=== PATIENT | female | born 1960 | race African-American/Black ===

== ENCOUNTER 2019-10-29 18:52 | Emergency (ER) | payer BC, OTHER ==
[~2019-10-29] VITALS: Ht 175.3 cm; Wt 116.6 kg
[2019-10-29 19:49] LABS: ANION GAP 11 mmol/L (7-16); BUN 16 mg/dL (7-18); CALCIUM 9.7 mg/dL (8.5-10.1); CHLORIDE 100 mmol/L (98-107); CO2 27 mmol/L (21-32); CREATININE 1.1 mg/dL (0.6-1.0); GLUCOSE 107 mg/dL (74-106); POTASSIUM 3.5 mmol/L (3.5-5.1); SODIUM 138 mmol/L (136-145)
[2019-10-29 20:00] LABS: ALBUMIN 4.1 g/dL (3.4-5.0); SGOT 21 U/L (15-37); SGPT 37 U/L (30-65); TOTAL BILIRUBIN 0.2 mg/dL (0.2-1.0); TOTAL PROTEIN 7.8 g/dL (6.4-8.2); TROPONIN-I <0.06 ng/mL (<0.06)
[2019-10-29] MEDS ORDERED: PREDNISONE 20 M20 M1 PO (22:07)
[2019-10-29 22:14] VITALS: BP 129/76
--- NOTE | 2019-10-30 07:52 | EKG ---
[facility] [place] [address] ELECTROCARDIOGRAM REPORT Name: MO LUCIO Joanna Room #: DEP [facility]#: [id number] Admission: 10/29/19 Attend Phys: Discharge: 10/29/19 Date of : 56 Report #: [id number] THIS REPORT FOR: cc: KENNY - Renetta family physician/PCP KENNY - Renetta family physician/PCP Bertrand Edward MD [facility] THIS REPORT FOR: //name// [facility] ED Test Date: 2019-10-29 Test Time: 19:18:41 Pat Name: MO LUCIO Department: Room: Gender: Power Lineman Technician: [place] [id number] : 1960 Requested By: Nj Montgomery Order Number: [id number] MD: Bertrand Edward Measurements Intervals [place] Rate: 99 P: 42 AR: 185 QRS: 21 QRSD: 84 T: 48 QT: 358 QTc: 460 Interpretive Statements Sinus rhythm Abnormal R-wave progression, early transition No previous ECG available for comparison Electronically Signed On 10-30-2019 7:52:29 CDT by Bertrand Edward [email or web address] <ELECTRONICALLY SIGNED> By: Bertrand Edward MD, [facility] 10/30/19 075 17 17 Bertrand Edward MD, [facility] /EPI
== END 2019-10-29 22:14 | disposition home or self-care (01) ==
LOC: ER 18:52
PROVIDERS: Emergency Medicine
DX: U07.1 COVID-19 (principal); R14.0 Abdominal distension (gaseous); I10 Essential (primary) hypertension